=== PATIENT | female | born 1945 | race Caucasian/White ===

== ENCOUNTER → 2024-01-31 13:45 | Outpatient (REF) | payer MEDICARE, OTHER, SELFPAY ==
[2024-01-31 15:32] LABS: % Basophils 0.7 % (0-2); % Eosinophils 1.2 % (0-6); % Immature Granulocytes 0.8 % (0-0.5); % Lymphocytes 22.1 % (20.5-51.1); % Monocytes 6.1 % (1.7-9.3); % Neutrophils 69.1 % (42.2-75.2); Absolute Basophils 0.1 10^3/uL (0-0.2); Absolute Eosinophils 0.1 10^3/uL (0-0.7); Absolute Immature Granulocytes 0.1 10^3/uL (0-0.05); Absolute Lymphocytes 1.6 10^3/uL (1.2-3.4); Absolute Monocytes 0.5 10^3/uL (0.1-0.6); Absolute Neutrophils 5.1 10^3/uL (1.4-6.5); Hematocrit 38.8 % (37.0-47.0); Hemoglobin 13.3 g/dL (12.0-16.0); Mean Corp Hgb Conc. 34.3 g/dL (33.0-37.0); Mean Corpuscular Hgb 29.8 pg (27.0-31.0); Mean Corpuscular Volume 86.8 fL (81.0-99.0); Nucleated Red Blood Cells % 0 %; Platelet Count 318 10^3/uL (130-400); Red Blood Cell Count 4.47 10^6/uL (4.20-5.40); Red Cell Dist. Width 13.8 % (11.5-14.5); White Blood Cell Count 7.4 10^3/uL (4.8-10.8)
[2024-01-31 15:57] LABS: ALT (SGPT) 12 U/L (0-35); AST (SGOT) 20 U/L (14-36); Albumin 3.6 g/dl (3.5-5.0); Alkaline Phosphatase 80 U/L (38-126); Blood Urea Nitrogen 20 mg/dl (7-17); Calcium 9.5 mg/dl (8.4-10.2); Carbon Dioxide 28 mmol/L (22-30); Chloride 103 mmol/L (98-107); Glucose 99 mg/dl (70-99); Potassium 4.6 mmol/L (3.5-5.1); Sodium 138 mmol/L (135-145); Total Bilirubin 0.4 mg/dl (0.2-1.3); eGFR > 60.00
== END ==
LOC: HWLAB 13:45
PROVIDERS: ATTENDING PHYSICIAN Otolaryngology; FAMILY PHYSICIAN Family Medicine
DX: K11.8 Other diseases of salivary glands (principal); D11.0 Benign neoplasm of parotid gland; Z01.818 Encounter for other preprocedural examination
CPT/HCPCS: 36415; 71046; 80053; 85025; 93005

== ENCOUNTER → 2024-07-06 11:47 | Outpatient (REF) | payer MEDICARE, OTHER, SELFPAY | LOC: WDC 11:47 | PROVIDERS: ATTENDING PHYSICIAN Obstetrics & Gynecology Gynecology; FAMILY PHYSICIAN Family Medicine | DX: Z12.31 Encounter for screening mammogram for malignant neoplasm of breast (principal) | CPT/HCPCS: 77063; 77067 ==

== ENCOUNTER → 2024-07-20 07:34 | Outpatient (REF) | payer MEDICARE, OTHER, SELFPAY | LOC: EMG 07:34 | PROVIDERS: ATTENDING PHYSICIAN Physical Medicine & Rehabilitation; FAMILY PHYSICIAN Family Medicine | DX: R20.0 Anesthesia of skin (principal) | CPT/HCPCS: 95886; 95911 ==

== ENCOUNTER 2024-08-07 14:02 | Emergency (ER) | payer MEDICARE, OTHER, SELFPAY ==
[2024-08-07 14:03] VITALS: BMI 27.8
[2024-08-07 14:04] VITALS: BP 138/71
[2024-08-07 14:28] LABS: % Basophils 0.6 % (0-2); % Eosinophils 0.9 % (0-6); % Immature Granulocytes 0.8 % (0-0.5); % Lymphocytes 15.4 % (20.5-51.1); % Monocytes 6.9 % (1.7-9.3); % Neutrophils 75.4 % (42.2-75.2); Absolute Eosinophils 0.1 10^3/uL (0-0.7); Absolute Immature Granulocytes 0.1 10^3/uL (0-0.05); Absolute Monocytes 0.5 10^3/uL (0.1-0.6); Hematocrit 36.7 % (37.0-47.0); Hemoglobin 12.6 g/dL (12.0-16.0); Mean Corp Hgb Conc. 34.3 g/dL (33.0-37.0); Mean Corpuscular Hgb 29.9 pg (27.0-31.0); Mean Platelet Volume 10.6 fL (7.4-10.4); Nucleated Red Blood Cells % 0 %; Platelet Count 267 10^3/uL (130-400); Red Blood Cell Count 4.22 10^6/uL (4.20-5.40); Red Cell Dist. Width 13.2 % (11.5-14.5); White Blood Cell Count 6.6 10^3/uL (4.8-10.8)
[2024-08-07 15:00] VITALS: BP 138/73
[2024-08-07] MEDS: VALIUM INJECTION 2 MG IV (15:20)
--- NOTE | 2024-08-07 15:30 | ED.GENMED ---
History of Present Illness
General
Chief Complaint: Heart Rate Problem
Source: patient
Exam Limitations: none
Time Seen by Provider: 08/07/24 14:26
History of Present Illness
History of Present Illness:
78-year-old female presents from outpatient surgical center after having episode of atrial fibrillation after left carpal tunnel surgery today. Was done only under local anesthesia. She was noted to have heart rate that was irregular in recovery.
They thought it was A-fib and sent her in. Patient admits to getting nervous around her surgeries. She denies chest pain or breath. When she was hooked up to EKG and EMS she returned into a sinus tachycardia. No abdominal pain. No other
complaints. No prior history of A-fib.
Past History
Past History
ED Past Medical History: GERD and Hypercholesterolemia
Social History
Tobacco: Non-smoker
Alcohol: None
Drug: None
Personal:
Phy Exam
Physical Exam
Physical Exam:
General: Well-appearing female no respiratory distress
HEENT: Normocephalic atraumatic
Heart: Tachycardic but regular
Lungs: Clear no wheeze or rale
Extremities: No cyanosis or edema
Abdomen is soft nontender nondistended guarding or rebound
Skin: Warm no rash
Course
Orders/Labs/Results
Orders:
Orders
08/07/24 14:12
EKG [Electrocardiogram (*1)] Urgent
Reason for Study: Tachycardia
EKG- Treatment ONCE
08/07/24 14:20
Complete Blood Count/With Diff Urgent
08/07/24 14:52
diazePAM [Valium Injection] 2 mg IV NOW STA
08/07/24 15:19
Comprehensive Metabolic Panel Urgent
Abnormal Lab Results
08/07/24 08/07/24
14:20 15:19
Hct 36.7 L %
(37.0-47.0)
MPV 10.6 H fL
(7.4-10.4)
Abs Immat Gran (auto) 0.1 H 10^3/uL
(0-0.05)
Absolute Lymphs (auto) 1.0 L 10^3/uL
(1.2-3.4)
Immature Gran % 0.8 H %
(0-0.5)
Neutrophils % 75.4 H %
(42.2-75.2)
Lymphocytes % 15.4 L %
(20.5-51.1)
Chloride 110 H mmol/L
(98-107)
Total Protein 5.9 L g/dl
(6.3-8.2)
Albumin 3.4 L g/dl
(3.5-5.0)
08/07/24 14:20
08/07/24 15:19
Vital Signs
Initial and Last Documented VS:
Initial Vital Signs
Temp Pulse Resp BP Pulse Ox
98.2 F 108 12 138/71 99
08/07/24 14:04 08/07/24 14:04 08/07/24 14:04 08/07/24 14:04 08/07/24 14:04
Last Documented Vital Signs
Temp Pulse Resp BP Pulse Ox
98.2 F 96 16 139/72 96
08/07/24 14:04 08/07/24 16:12 08/07/24 15:45 08/07/24 16:00 08/07/24 15:45
MDM/Problems Addressed
Differential Diagnosis Includes:
Patient had episode of atrial fibrillation that was reported from ambulatory surgical center. She has been in a sinus tachycardia here. No chest pain. EKG shows sinus tachycardia. Heart rate is 10 5-1 10. Patient states she is anxious. She
typically would take Valium. Valium was ordered.
Considered anticoagulation but not indicated at this time
*Critical Care Note
Total Time (30-74mins, 75-104mins- exclusive of procedures): Not Applicable
Update Note
Update Note:
Patient feeling better and heart rate has come down after her normal Valium dose. No indication for any further intervention. Recommend she follow-up with cardiology.
ED Attending Note
-
Portions of this chart may have been created with voice recognition software.� Occasional wrong word or��sound alike� substitutions may have occurred due to the inherent limitations of voice recognition software.
Discharge Plan
Departure
Patient Disposition: Home (Routine Discharge)
Date of Disposition: 08/07/24
Time of Disposition: 16:17
Patient with high blood pressure during this ER visit?: No
Discharge Problem:
Atrial fibrillation
Prescriptions:
No Action
famotidine 40 MG tablet
40 mg PO BID
diazepam [Valium] 5 MG tablet
2.5 mg PO DAILYPRN PRN (Reason: anxiety)
levothyroxine 50 MCG tablet
50 mcg PO DAILY@0700 0RF
Fiber Gummies (with chromium) 1 EACH tablet,chewable
2 ea PO DAILY
Women's Multivitamin Gummies 200 MCG tablet,chewable
2 tab PO DAILY
loperamide 2 MG capsule
1 mg PO PRN PRN (Reason: diarrhea)
Align 4 MG capsule
4 mg PO DAILY
Ensure Liquid
1 ea PO DAILY
nutritional supplement-fiber Liquid
1 ea PO DAILY
ferrous sulfate [iron] 325 mg (65 mg iron) Tablet
325 mg PO DAILY
mupirocin 2 % ointment
1 applic topical BID Qty: 1 0RF
Patient Comments:
started 01/15/23 and wa staking BID, last took at home 01/18/23 in am
celecoxib 200 mg capsule
200 mg PO DAILY Qty: 14 0RF
Rx Instructions:
*take with food
*space out 2 hours from aspirin
ondansetron [ondansetron] 4 mg tablet,disintegrating
4 mg PO Q6H PRN (Reason: n/v) Qty: 20 1RF
Rx Instructions:
post-op
oxycodone 5 mg tablet
5 - 10 mg PO Q6HPRN PRN (Reason: 1 tab moderate-2 tabs severe pain) Qty: 30 0RF
Rx Instructions:
Dx TKA
ongoing therapy
aspirin 325 mg capsule
325 mg PO DAILY Qty: 30 0RF
Rx Instructions:
Take daily x4 weeks for blood clot prevention.
senna 8.6 mg capsule
17.2 mg PO BID Qty: 30 0RF
acetaminophen 500 MG tablet
1,000 mg PO Q6H Qty: 30 0RF
Rx Instructions:
Do not exceed >4000 mg daily.
docusate sodium [Colace] 100 mg Capsule
100 mg PO BID Qty: 30 0RF
Referrals:
Esa Perales MD [Active] -
Estefania Hammond DO [Family Provider] -
Activity Restrictions/Additional Instructions:
There was no evidence of atrial fibrillation on today's workup in the emergency room. Please follow-up with your cardiology team for further evaluation
Interventions
Interventions:
*Risk Screen - Suicide Last Done: 08/07/24 14:04
*General Assessment Last Done: 08/07/24 14:04
*Neglect/Abuse Screening Last Done: 08/07/24 14:04
ED- Fall Risk Assessment Last Done: 08/07/24 14:04
*ED COVID-19 Vaccine History Last Done: 08/07/24 14:04
ED- Cardiac Assessment Last Done: 08/07/24 14:12
ED- Pulmonary Assessment Last Done: 08/07/24 14:12
Discharge Date and Time
Print Language: ICELANDIC
[2024-08-07 15:44] LABS: ALT (SGPT) 12 U/L (0-35); AST (SGOT) 23 U/L (14-36); Albumin 3.4 g/dl (3.5-5.0); Alkaline Phosphatase 61 U/L (38-126); Blood Urea Nitrogen 15 mg/dl (7-17); Calcium 8.8 mg/dl (8.4-10.2); Carbon Dioxide 22 mmol/L (22-30); Chloride 110 mmol/L (98-107); Estimated Creatinine Clearance 69 ml/min; Glucose 96 mg/dl (70-99); Potassium 4.1 mmol/L (3.5-5.1); Sodium 141 mmol/L (135-145); Total Bilirubin 0.5 mg/dl (0.2-1.3); Total Protein 5.9 g/dl (6.3-8.2); eGFR > 60.00
[2024-08-07 16:00] VITALS: BP 139/72
== END 2024-08-07 16:38 | disposition home or self-care (01) ==
LOC: EMR 14:02
PROVIDERS: EMERGENCY PHYSICIAN Emergency Medicine; FAMILY PHYSICIAN Family Medicine
DX: I48.91 Unspecified atrial fibrillation (principal); K21.9 Gastro-esophageal reflux disease without esophagitis; E78.00 Pure hypercholesterolemia, unspecified; G56.02 Carpal tunnel syndrome, left upper limb
CPT/HCPCS: 99283; 96374; 80053; 85025; 93005

== ENCOUNTER → 2024-09-17 12:48 | Outpatient (REF) | payer MEDICARE, OTHER, SELFPAY | LOC: HWRCS 12:48 | PROVIDERS: ATTENDING PHYSICIAN Internal Medicine Cardiovascular Disease; FAMILY PHYSICIAN Family Medicine | DX: R00.0 Tachycardia, unspecified (principal) | CPT/HCPCS: 93306 ==

== ENCOUNTER → 2024-10-27 11:00 | Outpatient (REF) | payer MEDICARE, OTHER, SELFPAY ==
[2024-10-27 15:33] LABS: Blood Urea Nitrogen 19 mg/dl (7-17); Calcium 8.9 mg/dl (8.4-10.2); Carbon Dioxide 26 mmol/L (22-30); Chloride 101 mmol/L (98-107); Glucose 90 mg/dl (70-99); Potassium 4.8 mmol/L (3.5-5.1); Sodium 137 mmol/L (135-145); eGFR > 60.00
== END ==
LOC: HWRAD 11:00
PROVIDERS: ATTENDING PHYSICIAN Otolaryngology; FAMILY PHYSICIAN Family Medicine; REFERRING PHYSICIAN Otolaryngology
DX: D11.0 Benign neoplasm of parotid gland (principal); K11.8 Other diseases of salivary glands
CPT/HCPCS: 36415; 70491; 80048; Q9967

== ENCOUNTER 2025-01-13 05:55 | Day surgery (SDC) | payer MEDICARE, OTHER, SELFPAY ==
[2025-01-04 10:48] VITALS: BMI 25.9
[2025-01-13] VITALS (15 sets, daily range): BP systolic 89–122; BP diastolic 50–82
[2025-01-13 08:31] LABS: ACT-LR - POC 289 Seconds (116-155)
[2025-01-13 08:47] LABS: ACT-LR - POC 342 Seconds (116-155)
[2025-01-13 09:15] LABS: ACT-LR - POC 305 Seconds (116-155)
[2025-01-13 09:41] LABS: ACT-LR - POC 145 Seconds (116-155)
--- NOTE | 2025-01-13 09:47 | ITS.CL.ABL ---
[employer] - Ablation
Ablation
Procedure Report:
Primary Branch Operations Coordinator: Tony Farrell MD
Procedure Date: 01/13/2025
Patient History:
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
left-sided facial paralysis, carpal tunnel, symptomatic paroxysmal atrial fibrillation.
See H&P for complete details.
Indication:
Symptomatic paroxysmal atrial fibrillation
Arrhythmia Specific History:
Prior Medical Therapies for Rate and Rhythm Control:
X Beta-gene
[ ] Calcium channel-gene
[ ] Amiodarone
[ ] Dronederone
[ ] Sotalol
[ ] Flecainide
[ ] Dofetilide
[ ] Options limited by bradycardia
[ ] Options limited by comorbid renal disease
Prior Procedural Therapies for AF/AFL:
[ ] Cardioversion
[ ] Pulmonary Vein Isolation
[ ] Posterior Wall Isolation
[ ] Additional lines (Specify)
[ ] Surgical Melendez-MAZE or PVI (Specify)
Procedure Performed:
X AF ablation procedure (23820) -- includes LA/CS pacing, trans-septal, 3D mapping, + ICE
[ ] +IV drug (24038)
[ ] +Other Arrhythmia (38226)
[ ] +Other AF Line/ablation (05114)
Risks and expected recovery has been explained in detail. Alternative options have been explored, and in a shared-decision making fashion we have decided that this was the most appropriate procedure.
Method
NPO status confirmed. Grounding pad applied. Defibrillator pads applied. Continuous surface ECG, pulse oximetry, and blood pressure were monitored. Procedure was performed under general anesthesia, with anesthesia services.
Both groins were clipped, prepped with Chloraprep, and draped in sterile fashion. Time out was called. Local anesthesia administered with bupivacaine. The right femoral vein was accessed for catheter placement, using ultrasound guidance (images
saved to record), micro-puncture needle/wire, and modified seldinger technique. 3 sheaths were placed. The following catheters were used:
[ ] Tacticath SE (D/F Curve) ablation catheter
X Viewflex 9Fr ICE catheter
X Inquiry decapolar 6Fr diagnostic catheter
[ ] CRD Hex 6Fr
[ ] Arctic Front Advance Cryoballoon ([ ]28mm[ ]23mm)
[ ] Achieve Advance mapping catheter ([ ]15mm[ ]20mm)
X FlexCath Contour 10 Fr with PulseSelect PFA Catheter
X Advisor HD Grid Mapping Catheter, SE
[ ] Acusblabfeed AcuNav 8 Fr ICE catheter
[ ]Other: [ ]
Intracardiac ultrasound (ICE) was carefully advanced into the right atrium to guide sheath placement over a J-wire, catheter placement, guide trans-septal puncture, identify potential complications, identify anatomic structures and ensure proper
contact between ablation catheter and tissue. A basal trace/small pericardial effusion was noted at the initiation of case which remained unchanged during and at case completion.
Heparin was given prior to trans-septal puncture. Heparin was given to achieve and maintain a target ACT of 300-400 seconds throughout the procedure.
Trans-septal access was performed under ICE guidance. The trans-septal puncture was performed with a SafeSept wire through a Brockenbrough needle assembly through the steerable sheath. The wire was visualized as it entered the LSPV and system
advanced under ICE guidance and fluoroscopy into the LA. The Brockenbrough needle assembly, SafeSept wire and sheath dilator were removed under negative pressure. LA pressure was measured and recorded.
ICE and 3D mapping was performed to identify relevant cardiac structures. A careful 3D map was created to assess for regions of low-voltage and abnormal electrogram signals using HD grid mapping catheter and PulseSelect catheter. Additional mapping
was performed as outlined below.
Prior to ablation, glycopyrrolate was provided. PulseSelect catheter was advanced over J-wire to the ostium of each vein. Pulmonary vein isolation was performed with ostial and antral lesions in a circumferential manner. Contact was visualized via
EAM, ICE, fluoroscopy, and EGM signals. Following completion of ablation lesions, a post-ablation voltage/activation map was performed in sinus rhythm. Entrance and exit block were confirmed for each vein.
Catheter and sheath were removed from the left atrium and post-ablation intracardiac echo evaluation was consistent with pre-ablation with no changes and no change to pericardial effusion and there is no left atrial thrombus or left ventricle
thrombus seen. Electrophysiology study was performed. Atrial flutter was not induced during programmed extrastimuli. No other arrhythmias induced during procedure. Hemostasis was obtained with figure of 8 stitch for each groin and with manual
pressure. Protamine was used for reversal.
Estimated Blood Loss
10 mL
Complications
None
Fluoroscopy: 2.0 minutes; 3.66 mGy; DAP 0.525
Baseline Intervals:
Rhythm: SR
OH: 164 ms
QRS: 95 ms
QT: 403 ms
QTc: 420 ms
A-A: 920 ms
R-R: 920 ms
Post-Procedure Intervals:
OH: 143 ms
QRS: 101 ms
QT: 420 ms
QTc: 470 ms
AVWB: 360 ms
AERP: 600/260 ms
Recommendations
- Bedrest with straight-leg precautions as ordered
- Anticipate same day discharge if patient meeting clinical metrics
- Resume home medications as indicated
- Ok to resume anticoagulation tonight if patient and groin sites stable
- Plan for follow-up in office as scheduled
Asher Kerr DO
Clinical Cardiac Sociology Professor
cc: Dr Estefania Hammond; Dr Tony Farrell
--- NOTE | 2025-01-13 14:17 | W.PN.UPDATE ---
Update Note
Progress Note Update
79 yo WF s/p PVI (Same day). She denies cp, sob, le diet, voiding, EKG SR, R fem site c/d/i, soft. She will resume Eliquis tonight at home. Activity restrictions reviewed. She will continue metoprolol. She will f/u DCA in 2 mo, the office will call
her with an appointment. She is for d/c home after 230pm
== END 2025-01-13 15:00 | disposition home or self-care (01) ==
LOC: CATH 05:55
PROVIDERS: ATTENDING PHYSICIAN Internal Medicine Cardiovascular Disease; FAMILY PHYSICIAN Family Medicine; OTHER PHYSICIAN Internal Medicine Cardiovascular Disease
DX: I48.0 Paroxysmal atrial fibrillation (principal); I48.92 Unspecified atrial flutter; R00.2 Palpitations; R53.83 Other fatigue; R06.02 Shortness of breath; Z79.01 Long term (current) use of anticoagulants; F41.9 Anxiety disorder, unspecified; R25.1 Tremor, unspecified; E78.5 Hyperlipidemia, unspecified; K58.0 Irritable bowel syndrome with diarrhea; M48.00 Spinal stenosis, site unspecified; M54.10 Radiculopathy, site unspecified; E03.9 Hypothyroidism, unspecified; R42 Dizziness and giddiness; E04.2 Nontoxic multinodular goiter; N32.81 Overactive bladder; R73.03 Prediabetes; D64.9 Anemia, unspecified; D75.839 Thrombocytosis, unspecified; M19.90 Unspecified osteoarthritis, unspecified site; Z96.653 Presence of artificial knee joint, bilateral; Z96.612 Presence of left artificial shoulder joint; Z88.0 Allergy status to penicillin; Z88.1 Allergy status to other antibiotic agents; Z88.5 Allergy status to narcotic agent; Z79.890 Hormone replacement therapy
CPT/HCPCS: C1732; C1894; C1769; C1759; C1733; C1766; 76937; 85347; 93005; 93656

== ENCOUNTER → 2025-05-20 14:33 | Outpatient (REF) | payer MEDICARE, OTHER, SELFPAY | LOC: RAD 14:33 | PROVIDERS: ATTENDING PHYSICIAN Otolaryngology; FAMILY PHYSICIAN Family Medicine; REFERRING PHYSICIAN Otolaryngology | DX: D11.0 Benign neoplasm of parotid gland (principal) | CPT/HCPCS: 70491; Q9967 ==

== ENCOUNTER → 2025-07-07 13:02 | Outpatient (REF) | payer MEDICARE, OTHER, SELFPAY | LOC: WDC 13:02 | PROVIDERS: ATTENDING PHYSICIAN Obstetrics & Gynecology Gynecology; FAMILY PHYSICIAN Family Medicine | DX: Z12.31 Encounter for screening mammogram for malignant neoplasm of breast (principal) | CPT/HCPCS: 77063; 77067 ==